=== PATIENT | female | born 2000 | race Asian ===

== ENCOUNTER 2021-01-31 20:27 | Emergency (ER) | payer OTHER ==
[~2021-01-31] VITALS: Ht 162.6 cm; Wt 44.0 kg
--- NOTE | 2021-01-31 20:48 | NUR ---
Pt is pleasant, alert and oriented x4, brought in by EMS for jaw pain, numbness in jaw onset 5pm while at work. At the time, endorses rapid breathing and palpitations which have since resolved, pt denies chest pain at this time, speaking in full sentences, in no acute distress. Denies hx of same. Pt is a non smoker, no drug use. Denies any remarkable PMH. Predominantly Amharic speaking.
--- NOTE | 2021-01-31 21:34 | NUR ---
Pt does not want additional testing done until insurance information is confirmed. Per ER registration personnel, unable to confirm what pts insurance will cover versus what it wont at this juncture. I have educated and updated pt on this. Pt decideding whether or not she wants to stay and have completed orders done, versus deciding to sign out AMA.
--- NOTE | 2021-01-31 21:44 | NUR ---
Pt agreeable to ED orders, being taken to CT now. EKG and blood work to be done upon return.
--- NOTE | 2021-01-31 21:51 | NUR ---
Pt back from CT.
[2021-01-31 22:00] LABS: MICROSCOPIC NOT IND
[2021-01-31 22:12] LABS: AMPHETAMINE SCREEN, URINE Negative (Negative); BARBITURATE SCREEN, URINE Negative (Negative); BENZODIAZEPINE SCREEN, URINE Negative (Negative); CANNABINOID SCREEN, URINE Positive (Negative); COCAINE SCREEN, URINE Negative (Negative); METHADONE SCREEN, URINE Negative (Negative); OPIATE SCREEN, URINE Negative (Negative)
[2021-01-31 22:15] LABS: BASOPHILS % (AUTO) 0 % (0-1); EOSINOPHILS % (AUTO) 0 % (1-7); LYMPHOCYTES % (AUTO) 11 % (22-44); MEAN CORPUSCULAR HEMOGLOBIN 30.9 pg (27.0-34.8); MEAN CORPUSCULAR HGB CONC 33.3 g/dL (32.4-35.8); MEAN PLATELET VOLUME 8.3 fL (7.4-10.4); MONOCYTES % (AUTO) 4 % (2-9); NEUTROPHILS % (AUTO) 84 % (42-75); PLATELET COUNT 222 x10^3/uL (130-400); RED BLOOD COUNT 4.17 x10^6/uL (3.82-5.3); RED CELL DISTRIBUTION WIDTH 13.8 % (9.6-15.2)
[2021-01-31 22:25] LABS: ALBUMIN 4.1 g/dL (3.4-5.0); ANION GAP 3 mmol/L (5-15); CALCIUM 9.1 mg/dL (8.5-10.1); CHLORIDE 105 mmol/L (98-107); CREATININE 0.78 mg/dL (0.55-1.02)
[2021-01-31 23:08] VITALS: BP 109/63
--- NOTE | 2021-01-31 23:11 | NUR ---
Patient/Caregiver given discharge instructions and they have confirmed that they understand the instructions. Patient ambulatory with steady gait. NAD, all questions answered appropriately, denies additional needs at this time. No personal belongings left in room after discharge.
== END 2021-01-31 23:12 | disposition home or self-care (01) ==
LOC: ED 20:57
DX: Z00.00 Encounter for general adult medical examination without abnormal findings (principal); R51.9 Headache, unspecified
CPT/HCPCS: 36415; 70450; 80048; 80307; 80320; 81003; 82040; 85025; 93005; 99285; G0480